=== PATIENT | female | born 1985 | race Caucasian/White ===

== ENCOUNTER 2017-09-18 04:31 | Emergency (ER) | payer OTHER, SELFPAY ==
[2017-09-18 04:34] VITALS: BP 126/86; PULSE 92; RESP 16; TEMP 37; O2SAT 100; BMI 19.3
--- NOTE | 2017-09-18 05:27 | CT_ITS ---
STUDY: CT SOFT TISSUE NECK WITH CONTRAST REASON FOR EXAM: Female, 32 years old. Lump right side of neck RADIATION DOSAGE (If Supplied By Facility): CTDIvol = ( 8.80 ) mGy, DLP = ( 230.73 ) mGycm TECHNIQUE: The patient was scanned in a multi-detector CT scanner. High resolution transaxial imaging was performed following intravenous administration of 75ML ml of Isovue 300 contrast material. Sagittal and coronal images were reconstructed. No side marker applied to the area of interest. Individualized dose optimization techniques were used for this CT. COMPARISON: None. FINDINGS: Normal bilateral parotid glands. Normal bilateral price checker spaces. Normal bilateral parapharyngeal spaces. Normal bilateral carotid spaces. Normal bilateral sublingual and submandibular glands and spaces. Normal visualized nasopharynx. Normal retropharyngeal space. Normal perivertebral space. Normal visualized bilateral faucial tonsils. The visualized tongue, tongue base and oropharynx are normal. There are minimally enlarged lymph nodes of the neck, with preservation of normal dannielle architecture, consistent with a reactive lymph hyperplasia. There is no demonstrated solid or cystic mass lesion. There is no abnormal contrast enhancement. Normal epiglottis, bilateral vallecula and hypopharynx. The pre-epiglottic and paraglottic adipose spaces are normal. Normal visualized bilateral piriform sinuses, aryepiglottic folds, vocal cords, and arytenoid-cricoid articulations. Normal subglottic trachea. Normal bilateral lobes of the thyroid gland. Normal visualized pulmonary apices. Normal visualized paranasal sinuses. Normal visualized cervical spine. CT/Soft Tissue Neck WITH Contrast IMPRESSION: Cervical lymphoid hyperplasia. No cystic or solid mass, abscess or collection detected. Electronically Signed: Eunice Carreon MD at 7:21 EDT , Service support ,
--- NOTE | 2017-09-18 05:27 | EKG12_ITS ---
Test Reason : PAIN Blood Pressure : / mmHG Vent. Rate : 076 BPM Atrial Rate : 076 BPM P-R Int : 160 ms QRS Dur : 088 ms QT Int : 386 ms P-R-T Axes : 048 065 053 degrees QTc Int : 434 ms Normal sinus rhythm Normal ECG Confirmed by HERNAN TINEO ([id number]), editor city DEREK NESBITT ([id number] on 10/01/2017 5:11:25 PM Referred By: LESLIE Confirmed By:HERNNA ITNEO
[2017-09-18 05:52] VITALS: BP 118/85; PULSE 86; O2SAT 100
[2017-09-18 06:02] LABS: Absolute Lymphocyte Count 1.53 X10^3/ul (0.83-4.51); Absolute Neutrophil Count 4.3 X10^3/uL (2.0-7.7); Basophil# 0.05 X10^3/uL; Basophil% 0.8 % (0-1); Eosinophils% 1.6 % (0-5); Hematocrit 39.7 % (37-47); Hemoglobin 12.6 g/dl (12.0-15.0); Lymphocyte # 1.53 X10^3/ul (4.0); Lymphocyte % 23.9 % (19-41); Mean Corp Hgb Conc 31.7 g/gl (32-36); Mean Corpuscular Hgb 27.5 pg (27.0-32.0); Mean Corpuscular Volume 86.5 fL (81-99); Mean Platelet Vol. 10.8 fl (6.2-12.0); Monocyte# 0.43 X10^3/uL; Monocyte% 6.7 % (0-10); Neutrophil # 4.28 X10^3/uL (2.7-7.7); Neutrophil % 66.8 % (47-70); Platelet Count 181 K/mm3 (150-450); RBC Distribution Width CV 13.8 % (11.6-14.6); RBC Distribution Width SD 43.3 fl (35.1-43.9); Red Blood Count 4.59 M/mm3 (4.2-5.4); White Blood Count 6.4 K/mm3 (4.4-11.0)
[2017-09-18 06:13] LABS: POSITIVE COUNT NO; POSITIVE DIFFERENTIAL NO; POSITIVE MORPHOLOGY NO
[2017-09-18 06:20] LABS: Anion Gap 8 (5-15); BUN 12 mg/dL (7-18); BUN/Creat Ratio 17.9 RATIO (10-20); Calcium,Total 8.1 mg/dL (8.5-10.1); Chloride 112 mmol/L (98-107); Creatinine, Serum 0.67 mg/dL (0.55-1.02); EST Glomerular Filtration Rate 107 mL/min (>60); Est Glom Filt Rate - Afr Amer 130 mL/min (>60); Estimated Creatinine Clearance 81.64 ml/min; Glucose 89 mg/dL (74-106); Potassium 3.9 mmol/L (3.5-5.1); Sodium Level 144 mmol/L (136-145)
--- NOTE | 2017-09-18 06:38 | ED.VISSUMM ---
- ER Visit Summary Date of Service: 09/18/17 Chief Complaint: Lump on neck History of Present Illness: The patient is a 32 F who presents with a lump on the side of her neck. She first noted it 2 days ago. She also states that she feels like her heart rate is all over the place. She denies any chest pain shortness of breath sore throat congestion rhinorrhea fevers nausea vomiting diarrhea. No history of prior similar symptoms. No recent illness. Physical Examination: Afebrile vitals are unremarkable Moist mucous membranes Oropharynx is clear No trismus Patient does have some swelling on the right side of the neck and palpable adenopathy versus a mass trachea is midline no thyromegaly Heart regular rate and rhythm Lungs are clear Abdomen soft Alert Test Results: EKG shows sinus rhythm at a rate of 76. CBC BMP normal. Rapid strep negative. CT of the soft tissue of the neck shows cervical lymphoid hyperplasia. No mass no fluid no abscess. Emergency Department Course and Treatment: Since workup is unremarkable here except for lymphadenopathy and lymphoid hyperplasia. No evidence of mass or abscess. Her workup is otherwise unremarkable and she does not have evidence of any focal bacterial infection. She was advised to follow-up with her primary care physician and was discharged home. Treatment Plan: [] Disposition: Discharge Impression: Cervical lymphoid hyperplasia This note was generated with [employer] dictation software. It may contain incorrect words, spelling, and punctuation that were not noted in review of the chart prior to signing ED Disposition - Plan for ED Patient: Chief Complaint: Other, Pain/Inj Referrals: Zahida Peterson DO [Primary Care Provider] -
--- NOTE | 2017-09-18 07:27 | DCINST.ED_ITS ---
ED Disposition - Plan for ED Patient: Chief Complaint: Other, Pain/Inj Referrals: Zahida Peterson DO [Primary Care Provider] - Additional Instructions: Have enlarged lymph nodes in the neck. There is no abscess or evidence to suggest that this is cancerous. He is Tylenol or ibuprofen for pain and follow- up with your primary care physician. Return for new or worsening symptoms.
== END 2017-09-18 07:55 | disposition home or self-care (01) ==
PROVIDERS: Emergency Provider Emergency Medicine; Family Provider Internal Medicine; PCP Internal Medicine
DX: R59.0 Localized enlarged lymph nodes (principal)
CPT/HCPCS: 70491; 80048; 85025; 87880; 93005; 99283; Q9967; A4216